=== PATIENT | female | born 1990 | race Caucasian/White ===

== ENCOUNTER 2017-01-23 18:19 | Emergency (ER) | payer OTHER ==
--- NOTE | ~2017-01-23 | CT2 ---
[facility] A Service of [facility] RADIOLOGY TEXT RESULTS PATIENT: JOHN CORBETT LOCATION: SED : [birth year] UNIT #: [id number] AGE: [address]: Liane Fish [employer] T[employer]ER SEX: F ORDER DR: [id number] [address] [id number] MR#: [id number] Acc #: [id number] NAME: JOHN CORBETT : 1990 SEX: F STUDY DATE/TIME: 01/23/2017 18:35 UNIT: SED ROOM: STUDY DESCRIPTION: CT Abd and Pelv W Cont Attending Physician: Liane Fish A.P.R.N. Ordering Physician: Liane Fish A.P.R.N. Primary Care Physician: Karen Mariscal M.D. MEDICAL IMAGING REPORT This report is preliminary unless electronic signature is present. EXAM CT of the abdomen and pelvis. DATE OF EXAM 01/23/2017 INDICATIONS Right upper quadrant abdominal pain that started today. Pain rates 10 out of 10. TECHNIQUE Axial images were obtained through the abdomen and pelvis following IV contrast administration. Multiplanar reformats were obtained. This CT exam was performed with one or more of the following radiation dose reduction techniques: automatic exposure control, adjustment of mA and/or kV according to patient size, and iterative reconstruction. COMPARISON Comparison made with 10/11/2013. FINDINGS ABDOMEN: Lung bases are clear. Gallbladder is normal. There is no biliary obstruction. Solid organs are normal. No free fluid or adenopathy is seen. GI tract evaluation is limited without oral contrast. The GI tract is grossly normal. PELVIS: Bladder is normal. Patient likely has polycystic ovaries. There is a dominant cyst on the left ovary measuring 1.9 cm. Patient is status post tubal ligation. The uterus enhances heterogeneously. This may simply be due to timing of the bolus, but I cannot exclude underlying endometrial or myometrial abnormality. This could be better assessed with pelvic ultrasound if indicated. The appendix is normal. The remainder of the GI tract is grossly normal as well. Trace free fluid may be STS. [facility] A Service of [facility] RADIOLOGY TEXT RESULTS PATIENT: JOHN CORBETT LOCATION: SED : [birth year] UNIT #: [id number] AGE: [address]: Liane Fish APRN ME[employer] GR[employer] TENDER SEX: F ORDER DR: physiologic. IMPRESSION 1. Allowing for the lack of oral contrast, the GI tract including the appendix is grossly normal. 2. The gallbladder is unremarkable and there is no biliary obstruction. 3. Probable polycystic ovaries. There is a dominant cyst in the left ovary measuring 1.9 cm. 4. Tubal ligation. 5. Heterogeneous enhancement in the uterus may simply be due to bolus timing. I cannot completely exclude any underlying abnormality involving the endometrium or myometrium. This could be better assessed with a pelvic ultrasound if needed. 6. Trace free fluid in the pelvis, likely physiologic. Dictated by... Lino Ellsworth Jr., M.D. THIS IS AN ELECTRONICALLY VERIFIED REPORT Lino Ellsworth Jr., M.D. at 01/23/2017 11:04 PM LEOPOLDO/carlitos TD: 01/23/2017 20:16 JOB #: [id number] MEDICAL IMAGING REPORT Page 1 of 1
[2017-01-23 18:18] LABS: URINE SOURCE CLEAN CATCH
[~2017-01-23 18:19] MED LIST: KEFLEX500 M1 PO; METRONIDAZOLE PO; NO MEDICATIONS; ZOFRAN ODT4 MG PO; [UNRECOGNIZED DRUG - OTHER] PO
[2017-01-23 18:23] LABS: URINE APPEARANCE CLEAR; URINE BILIRUBIN NEG (NEG); URINE BLOOD NEG (NEG); URINE COLOR YELLOW; URINE GLUCOSE NEG (NORM); URINE KETONE NEG (NEG); URINE LEUKOCYTE ESTERASE NEG (NEG); URINE NITRATE NEG (NEG); URINE PH 5.5 (5-8); URINE PROTEIN NEG (NEG); URINE UROBILINOGEN 0.2 MG/DL (NORM)
[2017-01-23 18:25] LABS: BASOPHIL% 0.4 % (0-2.5); EOSINOPHIL# 0.1 X10e3 (0-0.7); EOSINOPHIL% 1.4 % (0.0-7.0); HEMATOCRIT 44.5 % (35.0-45.0); HEMOGLOBIN 14.6 gm/dL (12.0-16.0); LYMPHOCYTE# 1.8 X10e3 (1.0-3.5); LYMPHOCYTE% 24.6 % (17.0-45.0); MEAN CELL VOLUME 95.1 FL (83-96); MEAN CORPUSCULAR HEMOGLOBIN 31.2 PG (28-34); MEAN CORPUSCULAR HGB CONC 32.8 g/dL (30-36); MONOCYTE# 0.7 X10e3 (0-1.0); MONOCYTE% 9.7 % (3.0-12.0); NEUTROPHIL# 4.7 X10e3 (1.5-7.1); NEUTROPHIL% 63.9 % (40-75); PLATELET COUNT 187 X10e3 (140-420); RED BLOOD COUNT 4.68 X10e (3.90-5.30); RED CELL DISTRIBUTION WIDTH 13.8 % (11.0-15.5); WHITE BLOOD COUNT 7.4 X10e3 (4.0-10.5)
[2017-01-23 18:26] LABS: DIFF IND NO
[2017-01-23 18:27] LABS: MICRO INDICATED? NO
[2017-01-23 18:42] LABS: ALBUMIN SERUM 4.5 g/dL (3.5-5.0); BILIRUBIN,TOTAL 0.5 mg/dL (0.2-2.0); BUN/CREATININE RATIO 21.42; CALCIUM SERUM 9.2 mg/dL (8.4-10.2); CREATININE SERUM 0.7 mg/dL (0.6-1.4); GLOM FILT RATE Estimated 120.4 mL/min (>60); POTASSIUM 3.8 mmol/L (3.5-5.1); PROTEIN TOTAL SERUM 7.4 g/dL (6.0-8.3)
== END 2017-01-23 19:13 | disposition home or self-care (01) ==
LOC: SED 18:19
PROVIDERS: Nurse Practitioner
DX: E28.2 Polycystic ovarian syndrome (principal); R10.31 Right lower quadrant pain; F17.200 Nicotine dependence, unspecified, uncomplicated
CPT/HCPCS: 36415; 74177; 80053; 81003; 84703; 85025; 96361; 96374; 96375; 99284; J2270; J2405; Q9967

== ENCOUNTER 2017-03-06 17:00 | Emergency (ER) | payer OTHER ==
[2017-03-06 17:11] LABS: URINE SOURCE CLEAN CATCH
[2017-03-06 17:14] LABS: URINE APPEARANCE CLEAR; URINE BILIRUBIN NEG (NEG); URINE BLOOD NEG (NEG); URINE COLOR YELLOW; URINE GLUCOSE NEG (NORM); URINE KETONE NEG (NEG); URINE LEUKOCYTE ESTERASE TRACE (NEG); URINE NITRATE NEG (NEG); URINE PH 5.5 (5-8); URINE PROTEIN NEG (NEG); URINE UROBILINOGEN 0.2 MG/DL (NORM)
[2017-03-06 17:16] LABS: MICRO INDICATED? YES
[2017-03-06 17:25] LABS: CULTURE INDICATED? NO; URINE BACTERIA NEG (NEG); URINE RBC NEG /[HPF] (0-2); URINE SQUAMOUS EPITHELIAL CELL OCCAS /[HPF]; URINE WBC 0-2 /[HPF] (0-5)
[2017-03-11 23:59] LABS: CHLAMYDIA TRACH Not Detected (Not Detected); N GONOR Not Detected (Not Detected)
== END 2017-03-06 18:08 | disposition home or self-care (01) ==
LOC: SED 17:00
PROVIDERS: Nurse Practitioner
DX: N76.0 Acute vaginitis (principal); Z98.51 Tubal ligation status; F17.210 Nicotine dependence, cigarettes, uncomplicated
CPT/HCPCS: 81003; 87210; 87491; 87591; 87808; 87905; 99284